=== PATIENT | female | born 1995 | race Caucasian/White ===

== ENCOUNTER 2022-08-11 10:58 | Emergency (ER) | payer MEDICAID ==
[2022-08-11 11:16] VITALS: BP 150/92
[2022-08-11] MEDS ORDERED: PENICILLIN VK 250 MG TABLET PO STA (11:54)
[2022-08-11] MEDS ORDERED: TETANUS/DIPHTHERIA/PERTUSSIS 0.5 ML SYRINGE IM ONE (11:54)
--- NOTE | 2022-08-11 11:56 | ED Physician Documentation ---
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 This was around 10 this morning. No other injuries. Tetanus status is unknown. Review of Systems Constitutional: reports: Reviewed and negative Ears: reports: Reviewed and negative Nose: reports: Reviewed and negative Respiratory: reports: Reviewed and negative PD PAST MEDICAL HISTORY - Present Medications Home Medications: Ambulatory Orders Medication Instructions Recorded Confirmed Penicillin V Potassium 500 mg PO Q6HR #12 tablet 08/11/22 - Allergies Allergies/Adverse Reactions: Allergies Allergy/AdvReac Type Severity Reaction Status Date / Time bee venom protein (honey bee) Allergy Unknown Verified 08/11/22 11:16 PD ED PE NORMAL - Vitals Vital signs reviewed: Yes - General General: Alert and oriented X 3, No acute distress - Extremities Extremities: Other (2 very small puncture wounds to the proximal part of the left index finger without tenderness or limited range of motion. No distal neurovascular compromise) - Neuro Neuro: Alert and oriented X 3, Normal speech Results - Vitals Vitals: Vital Signs - 24 hr 08/11/22 11:14 Temperature 36.5 C Heart Rate 67 Respiratory 20 Rate Blood Pressure 150/92 H O2 Saturation 100 Oxygen O2 Source Room air PD MEDICAL DECISION MAKING - ED course ED course: Per CDC guidelines, rabies vaccination is not necessary. But we will prophylax for rat bite fever with penicillin and tetanus is updated. Departure - Departure Disposition: 01 Home, Self Care Clinical Impression: Animal bite with open wound Condition: Good Record reviewed to determine appropriate education?: Yes Instructions: Bites Scratches Animal Prescriptions: Penicillin V Potassium 500 mg PO Q6HR #12 tablet Comments: We are giving you antibiotic prophylaxis for rat bite fever with penicillin. Come back for any signs of infection which would include: Redness, swelling, drainage, increased pain, or fevers. You can wash it soap and water. Keep it covered and moist with bacitracin ointment which is available over the counter; avoid neosporin. Discharge Date/Time: 08/11/22 12:02
== END 2022-08-11 12:02 | disposition home or self-care (01) ==
LOC: ED 10:58
DX: S61.251A Open bite of left index finger without damage to nail, initial encounter (principal); W53.11XA Bitten by rat, initial encounter; Y93.H9 Activity, other involving exterior property and land maintenance, building and construction; Y92.511 Restaurant or cafe as the place of occurrence of the external cause; Y99.0 Civilian activity done for income or pay
CPT/HCPCS: 90471; 90715; 99282; 99283; A9270